=== PATIENT | male | born 1970 | race Caucasian/White ===

== ENCOUNTER 2020-11-17 21:11 | Emergency (ER) | payer MEDICAID ==
[~2020-11-17] VITALS: Ht 172.7 cm; Wt 74.1 kg
[2020-11-17 21:16] VITALS: BP 151/91
--- NOTE | 2020-11-17 23:46 | NUR ---
F/U AND D/C INSTRUCTIONS GIVEN TO PT WITH PRESCRIPTIONS AND HE V/U. PT D/C'D WITHOUT INCIDENT.
== END 2020-11-17 23:48 | disposition home or self-care (01) ==
LOC: ED 23:00
DX: S60.222A Contusion of left hand, initial encounter (principal); W22.8XXA Striking against or struck by other objects, initial encounter; Y93.89 Activity, other specified; Y92.009 Unspecified place in unspecified non-institutional (private) residence as the place of occurrence of the external cause; Y99.8 Other external cause status
CPT/HCPCS: 99283